=== PATIENT | female | born 1980 | race Two or more races ===

== ENCOUNTER → 2016-11-19 | Day surgery (SDC) | payer OTHER ==
[~2016-11-19] VITALS: Ht 154.9 cm; Wt 69.8 kg
[~2016-11-19] MED LIST: *MEPERIDINE 25 MG INJ VIAL PERIprocedural Use ONLY ONE; *morphine SULFATE 8 MG/ML PERIprocedure ONLY ONE; ACETAMINOPHEN 1000 MG/100 ML 100 ML IV ONE; CHLORHEXIDINE GLUCONATE 2 % 1 PACK (2 CLOTHS) TOPICAL PRN; CLINDAMYCIN 600 MG/NS 100 ML IV ONE; DEXAMETHASONE SOD PHOS 4 MG/ML VIAL ONE; DO NOT ADM ANY ANTICOAGULANT DRUGS PRN; FAMOTIDINE 20 MG/2 ML VIAL ONE; INSULIN HUMAN REGULAR 1,000 UNITS/10 ML VIAL SQ PRN; KETOROLAC TROMETHAMINE 60 MG/2 ML (IM) VIAL IM ONE; LACTATED RINGER'S 1000 ML INJ 1,000 ML IV ONE; LACTATED RINGER'S 1000 ML INJ 1,000 ML IV SCH; LACTATED RINGER'S 1000 ML IV PRN; LIDOCAINE HCL 1% PF 5 ML AMPULE OTHER ONE; METOPROLOL TARTRATE 25 MG TAB PO PRN; MIDAZOLAM HCL 2 MG/2 ML VIAL IV ONE; ONDANSETRON HCL 4 MG/2 ML VIAL IV PUSH ONE; PHENYLEPH/NS 1000 MCG/10 ML SYR IV ONE; POVIDONE IODINE 5% (ANTISEPSIS KIT) 4 APPLICATIONS EACH NARE PRN; PROPOFOL 200 MG/20 ML AMP IV ONE; SODIUM CHLORID 0.9% 500 ML IV PRN; oxyCODONE/ACETAMINOPHEN 5 MG/325 MG TAB PO PRN
--- NOTE | 2016-11-19 07:36 | PD.OP ---
Operative Report Date of Surgery: Nov 19, 2016 Preoperative Diagnosis: (1) Excessive and frequent menstruation with irregular cycle (2) Primary dysmenorrhea (3) Intramural leiomyoma of uterus (4) Polyp of cervix uteri Postoperative Diagnosis: (1) Excessive and frequent menstruation with irregular cycle (2) Primary dysmenorrhea (3) Intramural leiomyoma of uterus (4) Polyp of cervix uteri Procedure: 1. hysteroscopy 2. polypectomy with Myosure 3.D&C 4. endometrial ablation with NovaSure Anesthesia: ARACELI Surgeon: Aye [employer] Testing Technician(s): OR Staff Operation and Findings: IVF: 1400 ml LR + IV antibiotics given prior to surgery EBL: < 25 ml UO: 150 ml Findings: multiple endometrial polyps in posterior uterine wall Specimens: endometrial polyps + endometrial curettings Complications: none Condition: stable Disposition: PACU Description of the procedure: The risks, benefits and alternatives of the procedure were discussed with the patient. Her questions were answered. The patient signed informed consent and wished to proceed. She was taken to the operating room with her IV running. She was placed in the supine position and was given light sedation without difficulties or complications. The patient was placed in the dorsal lithotomy position and was prepped and draped in the usual sterile fashion. A bivalve speculum was introduced inside the patient's vagina. The anterior aspect of the cervix was grasped with a single tooth tenaculum for manipulation. The cervix was carefully dilated; the uterus sounded to 7 cm and the cervix was measured to 3 cm. A 5 mm Myosure hysteroscope was introduced inside the patient's uterus. The cavity was noted to several small endometrial polyps. Myosure instrument was used to remove the polyps. Next, a careful curettage was done with a sharp curet. All the tissues were sent to pathology. Endometrial ablation was done following NovaSure protocol without any difficulties or complications (settings: width 4.7, length 4 cm, power 103). All the instruments were removed from the patient's uterus. All the instruments were removed from the patient's vagina. She tolerated the procedure well; she was successfully awaken from sedation and was transferred to PACU in stable condition. Note: I discussed the surgical findings and surgical procedures with patient's and patient's mother. Their questions were answered. They verbalized understanding and agreement to the procedures done. Aye Lara MD Nov 19, 2016 07:36
[2016-11-19 12:09] LABS: BETA HCG QUANT LESS THAN 1 MIU/ML (0-5)
[2016-11-19 15:10] VITALS: BP 111/54; PULSE 67; RESP 18; O2SAT 100
== END | disposition home or self-care (01) ==
LOC: HSDC 10:00
PROVIDERS: ATTEND Obstetrics & Gynecology
DX: N84.1 Polyp of cervix uteri (principal); N92.0 Excessive and frequent menstruation with regular cycle; N94.4 Primary dysmenorrhea; D64.9 Anemia, unspecified
CPT/HCPCS: 00952; 58563; 84702; 88305; J0131; J1100; J1885; J2175; J2250; J2270; J2370; J2405; J7120